=== PATIENT | male | born 1955 | race Caucasian/White ===

== ENCOUNTER → 2018-02-28 16:02 | Outpatient (POV) | payer SELFPAY | DX: Z00.00 Encounter for general adult medical examination without abnormal findings (principal) ==

== ENCOUNTER → 2018-08-02 10:13 | Outpatient (CLI) | payer BC, SELFPAY ==
[2018-08-03 10:41] LABS: Vitamin D 25 Hydroxy 37.4 ng/mL (30.0-100.0)
[2018-08-07 08:50] LABS: Testosterone, Total, LC/MS 370.3 ng/dL (264.0-916.0); Testosterone,Free 7.9 pg/mL (6.6-18.1)
== END ==
PROVIDERS: Visit Provider Internal Medicine
DX: E55.9 Vitamin D deficiency, unspecified (principal); R79.89 Other specified abnormal findings of blood chemistry
CPT/HCPCS: 36415; 82652; 84402; 84403

== ENCOUNTER → 2018-08-10 08:28 | Outpatient (POV) | payer BC, SELFPAY ==
[2018-08-10 09:07] VITALS: BP 147/79; PULSE 59; RESP 20
--- NOTE | 2018-08-10 10:19 | [facility].PMCON ---
Assessment and Plan (1) Degenerative joint disease (DJD) of lumbar spine Current visit: Yes Status: Chronic Category: Medical Code(s): M47.816 - Spondylosis without myelopathy or radiculopathy, lumbar region (2) Lumbar radiculopathy, chronic Current visit: Yes Status: Chronic Category: Medical Code(s): M54.16 - Radiculopathy, lumbar region (3) Spinal stenosis, lumbar region with neurogenic claudication Current visit: Yes Status: Chronic Category: Medical Code(s): M48.062 - Spinal stenosis, lumbar region with neurogenic claudication - Assessment and plan all Dx Assessment and Plan for all problems:: We will seek approval and plan on a lumbar epidural steroid injection under fluoroscopy. We will follow-up on his nerve conduction studies and EMG studies. HPI - Data of Consult Patient: new to practice Requesting Physician: Fabien Alberto MD Primary Care Provider: Satay Hairston - Consult Narrative Reason for consult: Progressive leg weakness and issues with spinal stenosis History of present illness: Mr. 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 He has had progressive leg weakness and issues with spinal stenosis. He has inability to stand on his toes as he is having some issues with his left great toe. He is seen Dr. Diaz who was somewhat concerned about his spinal stenosis issues but did not think he was a surgical candidate at this time. He did recommend nerve conduction studies to evaluate the left S1 nerve root. He does not have significant pain symptoms. He does notice some increased difficulty getting up from a seated position after sitting for long periods of time. He does notice increasing weakness and some occasional pain after walking or standing for long periods of time. I have reviewed his MRI which shows some significant stenosis at L4-L5, L2-L3 and L3-L4 however there was not much ligamentum flavum hypertrophy. He is failed all conservative therapy including physical therapy and nonsteroidal anti-inflammatories. I believe he would be a good candidate for lumbar epidural steroid injection. CC: Fabien Alberto MD [facility] History I have reviewed the patient's past medical history: Yes Medical History: Reports:: Cancer, Coronary Artery Disease, Hypertension Denies:: Diabetes Mellitus Type 1, Diabetes Mellitus Type 2, MRSA *Have you ever received a pneumonia vaccine?: No *Have you received a flu vaccine this season?: Yes Other Surgeries: Yes: Other (bowel surgery) Amputation: No Fractures: No - *Social History Educational Level: Completed College Alcohol Intake: never *Occupational Status:: employed *Travel in the last 8 weeks: None - Psychiatric History Expresses thoughts of harming self/others: None Suicide Plan Description: No Plan Family Hx:: No significant family history Review of Systems - Review of Systems Review of systems:: pertinent systems reviewed and negative unless documented below Meds Allergies Allergy/AdvReac Type Severity Reaction Status Date / Time No Known Allergies Allergy Unverified 03/07/17 15:02 Objective Vital signs: Pulse Resp BP 59 L 20 147/79 H 08/10/18 09:07 08/10/18 09:07 08/10/18 09:07 Opioid Risk Tool - Opioid Risk Tool-Male Family hx alcohol abuse: N Family hx illegal drugs: N Family hx rx drug abuse: N Personal hx alcohol abuse: N Personal hx illegal drugs: N Personal hx rx drug abuse: N Age: 45+ Hx of sexual abuse: N Mental health issues-ADD,OCD,Bipolar, etc: N Hx of depression: N Male Risk Score: 0
--- NOTE | 2018-08-10 10:22 | P.CONS_ITS ---
Assessment and Plan (1) Degenerative joint disease (DJD) of lumbar spine Current visit: Yes Status: Chronic Category: Medical Code(s): M47.816 - Spondylosis without myelopathy or radiculopathy, lumbar region (2) Lumbar radiculopathy, chronic Current visit: Yes Status: Chronic Category: Medical Code(s): M54.16 - Radiculopathy, lumbar region (3) Spinal stenosis, lumbar region with neurogenic claudication Current visit: Yes Status: Chronic Category: Medical Code(s): M48.062 - Spinal stenosis, lumbar region with neurogenic claudication - Assessment and plan all Dx Assessment and Plan for all problems:: We will seek approval and plan on a lumbar epidural steroid injection under fluoroscopy. We will follow-up on his nerve conduction studies and EMG studies. 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 He has had progressive leg weakness and issues with spinal stenosis. He has inability to stand on his toes as he is having some issues with his left great toe. He is seen Dr. Diaz who was somewhat concerned about his spinal stenosis issues but did not think he was a surgical candidate at this time. He did recommend nerve conduction studies to evaluate the left S1 nerve root. He does not have significant pain symptoms. He does notice some increased difficulty getting up from a seated position after sitting for long periods of time. He does notice increasing weakness and some occasional pain after walking or standing for long periods of time. I have reviewed his MRI which shows some significant stenosis at L4-L5, L2-L3 and L3-L4 however there was not much ligamentum flavum hypertrophy. He is failed all conservative therapy including physical therapy and nonsteroidal anti-inflammatories. I believe he would be a good candidate for lumbar epidural steroid injection. CC: Fabien Alberto MD [facility] History I have reviewed the patient's past medical history: Yes Medical History: Reports:: Cancer, Coronary Artery Disease, Hypertension Denies:: Diabetes Mellitus Type 1, Diabetes Mellitus Type 2, MRSA *Have you ever received a pneumonia vaccine?: No *Have you received a flu vaccine this season?: Yes Other Surgeries: Yes: Other (bowel surgery) Amputation: No Fractures: No - *Social History Educational Level: Completed College Alcohol Intake: never *Occupational Status:: employed *Travel in the last 8 weeks: None - Psychiatric History Expresses thoughts of harming self/others: None Suicide Plan Description: No Plan Family Hx:: No significant family history Review of Systems - Review of Systems Review of systems:: pertinent systems reviewed and negative unless documented below Meds Allergies Allergy/AdvReac Type Severity Reaction Status Date / Time No Known Allergies Allergy Unverified 03/07/17 15:02 Objective Vital signs: Pulse Resp BP 59 L 20 147/79 H 08/10/18 09:07 08/10/18 09:07 08/10/18 09:07 Opioid Risk Tool - Opioid Risk Tool-Male Family hx alcohol abuse: N Family hx illegal drugs: N Family hx rx drug abuse: N Personal hx alcohol abuse: N Personal hx illegal d
== END ==
PROVIDERS: PCP Internal Medicine; Visit Provider Anesthesiology
DX: M48.062 Spinal stenosis, lumbar region with neurogenic claudication (principal); M47.26 Other spondylosis with radiculopathy, lumbar region
CPT/HCPCS: 99202